=== PATIENT | male | born 1950 | race Caucasian/White ===

== ENCOUNTER → 2016-07-21 | Day surgery (SDC) | payer MEDICARE ==
[~2016-07-21] MED LIST: ASPIRIN81 M1 PO; ASPIRIN81 MG PO; FARXIGA5 MG PO; INVOKANA100 MG PO; LIPITOR; LIPITOR PO; MULTI-DAY1 TAB PO; OMEPRAZOLE20 M1 PO; OMEPRAZOLE20 M2 PO; ROSUVASTATIN CA20 MG PO
--- NOTE | ~2016-07-21 | OR ---
Unit #: [id number] #: [id number] Patient: MARLEN NAGEL [id number] [address] [address] [id number] O MR#: [id number] NAME: MARLEN NAGEL. ROOM: Date of Procedure: 07/21/2016 Admission Date: 07/21/2016 Surgeon: Chung Molina M.D. : 1950 Attending Physician: Chung Molina M.D. Primary Care Physician: Gallo Vasquez M.D. OPERATIVE REPORT PREOPERATIVE DIAGNOSES The patient has come for surveillance colonoscopy. He has personal history of colonic polyps. PROCEDURES PERFORMED Colonoscopy and polypectomy. POSTOPERATIVE DIAGNOSES 1. The patient had a single sessile polyp in the mid descending colon. The latter was about 7 to 8 mm in size. It was removed using snare polypectomy. 2. Mild sigmoid and descending colon diverticulosis. 3. Rest of the examination up to cecum and terminal ileum was normal. The quality of the prep was excellent. RECOMMENDATIONS Follow up the results of polyp histology and repeat colonoscopy in 5 years. SEDATION USED MAC. DESCRIPTION OF PROCEDURE Following detailed explanation of the potential risks and complications of a colonoscopy, namely perforation, bleeding, and complications related to sedation, the patient was brought to GI lab and laid in the left lateral decubitus position. A digital rectal examination was performed, which was normal. Lubricated tip of the Olympus video colonoscope was inserted through the anus and advanced under direct vision. The scope was advanced and passed up to sigmoid into descending colon. Multiple medium-sized diverticula were noticed in this area. The scope tip was then navigated all the way up to cecum with visualization of the ileocecal valve and the appendiceal orifice. Preparation was excellent with good visualization and photodocumentation was obtained. Last few inches of the terminal ileum were also visualized after intubation of the ileocecal valve and appeared normal. Successive segments of the colonic mucosa were examined upon withdrawal and appeared unremarkable except for a single sessile polyp in the mid descending colon. The latter was about 7 mm in size. It was removed using snare polypectomy. The polyp was retrieved and sent for histology. No additional polyps noted. Other than the left-sided diverticulosis, no other abnormalities were found. The scope was then withdrawn. The patient returned to recovery area. He tolerated the procedure without any postprocedure complications. Unit #: [id number] #: [id number] Patient: MARLEN NAGEL Dictated by..Sayda Sam/kingsley TD: 07/22/2016 00:41 JOB #: [id number] OPERATIVE REPORT X Chung Molina MD PROCEDURE OPERATIVE NOTE
== END | disposition home or self-care (01) ==
LOC: COPS 12:58
DX: Z12.11 Encounter for screening for malignant neoplasm of colon (principal); D12.4 Benign neoplasm of descending colon; E11.9 Type 2 diabetes mellitus without complications; K57.30 Diverticulosis of large intestine without perforation or abscess without bleeding; Z87.442 Personal history of urinary calculi; Z79.82 Long term (current) use of aspirin; Z79.899 Other long term (current) drug therapy; Z90.89 Acquired absence of other organs; Z98.890 Other specified postprocedural states
CPT/HCPCS: 82947; 88305

== ENCOUNTER 2016-09-22 01:41 | Emergency (ER) | payer MEDICARE ==
--- NOTE | ~2016-09-22 | CT2 ---
[facility] A Service of [facility] RADIOLOGY TEXT RESULTS PATIENT: MARLEN NAGEL LOCATION: SED : 52 UNIT #: [id number] AGE: [address]: Zac Starkey MD SEX: M ORDER DR: [id number] [place] [id number] MR#: [id number] Acc #: [id number] NAME: MARLEN NAGEL. : 1950 SEX: M STUDY DATE/TIME: 09/22/2016 3:51 UNIT: SED ROOM: STUDY DESCRIPTION: CT Abd and Pelv W Cont Attending Physician: Zac Starkey M.D. Ordering Physician: Staff Doctor Not On Primary Care Physician: Gallo Vasquez M.D. MEDICAL IMAGING REPORT This report is preliminary unless electronic signature is present. EXAM CT abdomen and pelvis with contrast HISTORY 66-year-old male brought in by EMS complains of abdominal pain x3 hours TECHNIQUE This CT exam was performed with one or more of the following radiation dose reduction techniques: automatic control, adjustment of mA and/or kV according to patient size, and iterative reconstruction. FINDINGS Axial images performed through the abdomen and pelvis following IV and oral contrast. Multiplanar reconstructed images reviewed at a workstation. ABDOMEN: Lung bases unremarkable. Liver demonstrates fatty infiltration. Spleen and gallbladder unremarkable. Pancreas, kidneys and adrenal glands unremarkable. There is a small nonobstructing stone left kidney. Stomach, small bowel unremarkable. There is a sigmoid diverticular changes and there may be very subtle evidence of a diverticulitis. Clearly no perforation or abscess. Retroperitoneum unremarkable. PELVIS: Bladder unremarkable. The prostate is enlarged. Osseous structures remarkable for multilevel degenerative disc disease and facet arthropathy lumbar spine. IMPRESSION 1. Diverticular changes predominately involving the descending and sigmoid colon. There may be very minimal pericolonic inflammatory change within the sigmoid colon which could represent acute diverticulitis but this is less than convincing. Clearly no evidence of a perforation or abscess. 2. The appendix is normal. [facility] A Service of [facility] RADIOLOGY TEXT RESULTS PATIENT: MARLEN NAGEL LOCATION: [facility] #: [id number] : 52 UNIT #: [id number] AGE: [address]: Zac Starkey MD SEX: M ORDER DR: 3. There is a small left renal stone nonobstructing. Dictated by... Laura Valladares M.D. THIS IS AN ELECTRONICALLY VERIFIED REPORT Laura Valladares M.D. at 09/22/2016 10:33 PM MARGUERITE/mariluz TD: 09/22/2016 06:03 JOB #: [id number] MEDICAL IMAGING REPORT Page 1 of 1
--- NOTE | ~2016-09-22 | EKG ---
PATIENT: MARLEN NAGEL UNIT #: [id number] Ventricular Rate: 53 BPM Atrial Rate: 53 BPM P-R Interval: 194 ms QRS Duration: 100 ms Q-T Interval: 432 ms QTC Calculation(Bezet): 405 ms P [place]: 47 degrees Calculated R [place]: 10 degrees Calculated T [place]: 100 degrees Diagnosis Line: Sinus bradycardia with occasional Premature Diagnosis Line: ventricular complexes Diagnosis Line: Nonspecific ST and T wave abnormality Diagnosis Line: Otherwise normal ECG Diagnosis Line: No previous ECGs available Diagnosis Line: Confirmed by ZE SANTANA MD ([id number]) on 09/23/2016 Diagnosis Line: 10:01:10 AM INTERPRETING MD: ESTHER IGNACIO
[~2016-09-22 01:41] MED LIST changes: -FARXIGA5 MG PO; -LIPITOR
[2016-09-22] MEDS ORDERED: FARXIGA5 MG PO (01:48)
[2016-09-22] MEDS ORDERED: LIPITOR (01:48)
[2016-09-22 03:23] LABS: BASOPHIL# 0.1 X10e3 (0-0.3); BASOPHIL% 0.8 % (0-2.5); EOSINOPHIL# 0.1 X10e3 (0-0.7); EOSINOPHIL% 0.9 % (0.0-7.0); HEMATOCRIT 48.9 % (38.0-50.0); HEMOGLOBIN 16.2 gm/dL (13.0-16.0); LYMPHOCYTE% 22.7 % (17.0-45.0); MEAN CELL VOLUME 88.7 FL (83-96); MEAN CORPUSCULAR HEMOGLOBIN 29.4 PG (28-34); MEAN CORPUSCULAR HGB CONC 33.1 g/dL (30-36); MONOCYTE# 0.9 X10e3 (0-1.0); MONOCYTE% 9.6 % (3.0-12.0); PLATELET COUNT 199 X10e3 (140-420); RED BLOOD COUNT 5.51 X10e (3.90-5.60)
[2016-09-22 03:34] LABS: DIFF IND NO
[2016-09-22 03:36] LABS: POC - CKMB <1.0 ng/mL (0.0-7.9); POC - TROPONIN <0.05 ng/mL (<=0.05)
[2016-09-22 03:49] LABS: BILIRUBIN, DIRECT 0.2 mg/dL (0.0-0.2); BILIRUBIN,INDIRECT 0.8 mg/dL (0.0-0.9); CALCIUM SERUM 9.6 mg/dL (8.4-10.2); GLOM FILT RATE Estimated 78.6 mL/min (>60); PROTEIN TOTAL SERUM 7.8 g/dL (6.0-8.3)
[2016-09-22 04:44] LABS: URINE SOURCE CLEAN CATCH
[2016-09-22 04:47] LABS: URINE APPEARANCE CLEAR; URINE BILIRUBIN NEG (NEG); URINE BLOOD TRACE-LYSED (NEG); URINE COLOR YELLOW; URINE GLUCOSE 300 MG/DL (NORM); URINE KETONE TRACE (NEG); URINE LEUKOCYTE ESTERASE NEG (NEG); URINE NITRATE NEG (NEG); URINE PH 5.5 (5-8); URINE PROTEIN NEG (NEG); URINE SPECIFIC GRAVITY >=1.030 (1.003-1.035); URINE UROBILINOGEN 0.2 MG/DL (NORM)
[2016-09-22 04:51] LABS: MICRO INDICATED? YES
[2016-09-22 05:05] LABS: CULTURE INDICATED? NO; URINE BACTERIA NEG (NEG); URINE MUCUS PRESENT; URINE SQUAMOUS EPITHELIAL CELL OCCAS /[HPF]; URINE WBC 0-2 /[HPF] (0-5)
== END 2016-09-22 05:53 | disposition home or self-care (01) ==
LOC: SED 01:41
PROVIDERS: Emergency Medicine
DX: K57.32 Diverticulitis of large intestine without perforation or abscess without bleeding (principal); E11.9 Type 2 diabetes mellitus without complications; Z79.82 Long term (current) use of aspirin; Z79.899 Other long term (current) drug therapy; Z79.84 Long term (current) use of oral hypoglycemic drugs
CPT/HCPCS: 36415; 74177; 80048; 80076; 81003; 82150; 82553; 83690; 84484; 85025; 93005; 96361; 96374; 96375; 99284; J1885; J2405; Q9967